=== PATIENT | male | born 1960 | race Caucasian/White ===

== ENCOUNTER 2018-03-04 07:48 | Day surgery (SDC) | payer OTHER ==
[2018-02-24 11:29] VITALS: BMI 33.2
[2018-03-04] MEDS ORDERED: MIDAZOLAM HCL 2 MG/2 ML SINGLE DOSE VIAL ONE (10:19)
[2018-03-04] MEDS ORDERED: PROPOFOL 20 ML ONE (10:19)
[2018-03-04] MEDS ORDERED: fentaNYL CITRATE 250 MCG/5 ML VIAL ONE (10:19)
[2018-03-04] MEDS ORDERED: ceFAZolin SODIUM 1 GM VIAL ONE (10:49)
[2018-03-04] MEDS ORDERED: LIDOCAINE HCL 2% JELLY (5 ML/TUBE) ONE (10:49)
[2018-03-04] MEDS ORDERED: BUPIVACAINE HCL/EPINEPHRINE/PF 30 ML VIAL IJ ONE (10:52)
[2018-03-04] MEDS ORDERED: LIDOCAINE 1%/EPI 1:100000 (20 ML MULTI DOSE VIAL) ONE (10:52)
[2018-03-04] MEDS ORDERED: BUPIVACAINE 0.25% /EPI 1:200,000 10 ML VIAL INF ONE (11:08)
[2018-03-04] MEDS ORDERED: DEXAMETHASONE SOD PHOSPHATE 4 MG/1 ML VIAL ONE (11:27)
[2018-03-04] MEDS ORDERED: ONDANSETRON 4 MG/2 ML VIAL ONE (11:27)
--- NOTE | 2018-03-04 11:49 | OP ---
Operative Note - Note: Operative Date: 03/04/18 Pre-Operative Diagnosis: left knee MMT, cartilage defect Operation: LKA, microfacture, PRP injection, Partial menisectomy Post-Operative Diagnosis: Same as Pre-op Surgeon: Po Florez Anesthesiologist/BOAT GARNISHER: Elan Barajas Operative Report Dictated: Yes
--- NOTE | 2018-03-04 11:49 | DS ---
Physical Examination Vital Signs: Vital Signs Temperature 97.9 F 03/04/18 08:03 Pulse Rate 68 03/04/18 08:03 Respiratory Rate 16 03/04/18 08:03 Blood Pressure 145/90 03/04/18 08:03 O2 Sat by Pulse Oximetry (%) 98 03/04/18 08:09 Discharge Summary Reason For Visit: MEDIAL MENISCAL TEAR LEFT KNEE Condition: Good - Instructions Diet, Activity, Other Instructions: Post Operative Instructions: Knee Arthroscopy Dr Po Florez 1. Pain following an arthroscopy is variable. Some patients will have more pain than others. You have been provided with a prescription for medication that contains a narcotic. You are not allowed to drive while on this medication. You can take Tylenol (Acetaminophen) when taking the pain medication. DO NOT TAKE such as Ibuprofen or Naprosyn in addition to the pain medicine. 2. You should are allowed to remove the bandages and shower in 24 hours unless directed otherwise. You are not allowed to bathe or go swimming until the sutures are removed. Put band-aids on the sutures after your shower and do not put any creams or lotions over the incisions. 3. You are allowed to put all your weight on the leg and bend your knee, unless directed otherwise. 4. Apply ice to the knee for 15 min every hour or so. You may continue this for as many days as you like. 5. Please call the office to schedule a visit to have your sutures removed. 6. If for any reason you believe you may have an infection or are concerned, please feel free to call me. I can be reached through our office number 24 hours a day. 7. Please call our office with any questions; we will review the surgical findings during your post operative visit. Disposition: HOME - Home Medications Comprehensive Discharge Medication List: Ambulatory Orders NK [No Known Home Medication] 02/24/18
[2018-03-04] MEDS ORDERED: oxyCODONE HCL 5 MG TABLET PO PRN ×2 (12:26)
[2018-03-04] MEDS ORDERED: ONDANSETRON 4 MG/2 ML VIAL IVPUSH PRN (12:26)
[2018-03-04] MEDS ORDERED: LACTATED RINGERS SOLUTION 1,000 ML IV SCH (12:30)
[2018-03-04 14:05] VITALS: TEMP 97.7
[2018-03-04 14:08] VITALS: BP 148/85; PULSE 70
--- NOTE | 2018-03-09 16:28 | PATH ---
Surgical Pathology Report Patient Name: BAO BURT [facility]. Rec. #: [id number] /Age/Gender: 1960 (Age: 57) / M Account: [id number] Location: [facility] Taken: 03/04/2018 Received: 03/04/2018 Reported: 03/09/2018 Physicians: Po Florez M.D. Specimen(s) Received LEFT KNEE SHAVINGS Clinical History Medial meniscal tear left knee Final Diagnosis KNEE, LEFT, ARTHROSCOPIC SHAVINGS: CARTILAGE AND FIBROSYNOVIAL TISSUE. Electronically Signed Gretchen Brothers M.D. Gross Description Received in formalin, labeled "left knee shavings," is a 3.0 x 2.5 x 0.3 cm. aggregate of zheng-yellow soft tissue fragments. A sales representative livestock portion is submitted in one cassette. 03/07/2018 saudi03/07/2018
== END 2018-03-04 13:50 | disposition home or self-care (01) ==
LOC: FASU 07:48
PROVIDERS: ATTEND Orthopaedic Surgery
PROC: 0SQD4ZZ Repair Left Knee Joint, Percutaneous Endoscopic Approach (ICD-10-PCS; 2018-03-04)
PROC: 3E0U3GC Introduction of Other Therapeutic Substance into Joints, Percutaneous Approach (ICD-10-PCS; 2018-03-04)
PROC: 0SBD4ZZ Excision of Left Knee Joint, Percutaneous Endoscopic Approach (ICD-10-PCS; principal; 2018-03-04 09:30)
DX: S83.242A Other tear of medial meniscus, current injury, left knee, initial encounter (principal); M24.10 Other articular cartilage disorders, unspecified site; X58.XXXA Exposure to other specified factors, initial encounter; Y93.9 Activity, unspecified; Y92.9 Unspecified place or not applicable
CPT/HCPCS: 0232T; 29879; 29881; 88304-TC; 94760